=== PATIENT | female | born 1955 | race African-American/Black ===

== ENCOUNTER 2020-01-19 10:57 | Emergency (ER) | payer MEDICARE | END 2020-01-19 12:50 | disposition home or self-care (01) | LOC: ERS 10:57 | DX: R07.89 Other chest pain (principal); K21.9 Gastro-esophageal reflux disease without esophagitis; E78.5 Hyperlipidemia, unspecified; E78.00 Pure hypercholesterolemia, unspecified; I10 Essential (primary) hypertension; Z87.891 Personal history of nicotine dependence; Z79.82 Long term (current) use of aspirin; Z79.899 Other long term (current) drug therapy | CPT/HCPCS: 36415; 93005 ==

== ENCOUNTER 2023-11-05 16:23 | Observation (INO) | payer MEDICARE ==
[2023-11-05 18:30] VITALS: BMI 40.5
[2023-11-05] MEDS ORDERED: Acetaminophen 325 MG TAB PO PRN (18:36)
[2023-11-05] MEDS ORDERED: Nitroglycerin 0.4 MG TAB (25 Tab Bottle) SL PRN (18:36)
[2023-11-05] MEDS ORDERED: hydrOXYzine 25 MG TAB PO PRN (18:39)
[2023-11-05] MEDS ORDERED: hydrALAZINE 20 MG/ML VIAL SLOW IVP PRN (18:40)
[2023-11-05 19:33] LABS: Troponin I 0.014 ng/mL (< 0.028)
[2023-11-06 00:52] LABS: Bacteria/HPF 3+ HPF (None Seen); Bilirubin Negative (Negative); Blood, Urine Negative (Negative); Clarity Clear (Clear); Glucose, Urine (Dipstick) Normal (Negative); Ketone, Urine Negative (Negative); Leukocyte Negative Leu/uL (Negative); Nitrite Negative (Negative); Protein, Urine (Dipstick) Negative (Neg-Trace); RBC/HPF 0-3 HPF (0-3); Specific Gravity, Urine 1.011 (1.002-1.036); Urobilinogen Normal mg/dL (Less than 2); WBC/HPF 0-3 HPF (0-3); pH, Urine 7.5 (5.0-9.0)
[2023-11-06 06:17] LABS: Cardiac Risk 4.6 (Less than 4.5)
[2023-11-06] MEDS: Atorvastatin Calcium 20 MG TAB PO SCH (08:05)
[2023-11-06] MEDS: Hydrochlorothiazide 25 MG TAB PO SCH (08:05)
[2023-11-06] MEDS: Aspirin Chewable 81 MG TAB PO SCH (08:05)
[2023-11-06] MEDS: Lisinopril 20 MG TAB PO SCH (08:05)
[2023-11-06] MEDS ORDERED: Regadenoson 0.4 MG/5 ML SYRINGE ONE (12:00)
[2023-11-07 05:35] LABS: #Eosinphils 0.1 thou/uL (0.0-0.7); #Monocytes 0.5 thou/uL (0.11-0.59); #Neutrophils 4.9 thou/uL (1.40-6.50); %Basophils 0.3 % (0.0-1.0); %Eosinophils 1.5 % (0.0-10.0); %Monocytes 5.9 % (0.0-10.0); %Neutrophils 56.8 % (42.0-75.0); Hematocrit 31.7 % (36.0-47.0); Hemoglobin 10.7 g/dL (12.0-16.0); Mean Corpuscular HGB CONC 33.8 g/dL (32.0-36.0); Mean Corpuscular Hemoglobin 27.6 pg (27.0-31.0); Mean Corpuscular Volume 81.7 fl (78.0-98.0); Mean Platelet Volume 10.2 fL (7.4-10.4); Platelet Count 336 10x3/uL (130-400); RBC Distribution Width 15.1 % (11.5-14.5); Red Blood Cell (RBC) Count 3.88 mill/uL (4.20-5.40); White Blood Cell (WBC) Count 8.6 10x3/uL (4.8-10.8)
[2023-11-07 05:55] LABS: Anion Gap 13 mmol/L (10-20); BUN (Urea Nitrogen) 12 mg/dL (9.8-20.1); Calc. Creatinine Clearance 89 mL/min (70-130); Calcium 9.2 mg/dL (7.8-10.44); Carbon Dioxide 27 mmol/L (23-31); Chloride 106 mmol/L (98-107); Estimated GFR 61; Glucose 96 mg/dL (80-115); Potassium 3.5 mmol/L (3.5-5.1); Sodium 142 mmol/L (136-145)
[2023-11-07] MEDS: Aspirin Chewable 81 MG TAB PO SCH (08:27)
[2023-11-07] MEDS: Hydrochlorothiazide 25 MG TAB PO SCH (08:27)
[2023-11-07] MEDS: Lisinopril 20 MG TAB PO SCH (08:27)
[2023-11-07] MEDS: Atorvastatin Calcium 20 MG TAB PO SCH (08:27)
[2023-11-07 12:01] VITALS: BP 147/54; TEMP 97.9
[2023-11-08] MEDS ORDERED: FLU VACC QS2023(65UP)/MF59C/PF 60 MCG/0.5 ML SYRINGE IM ONE (09:00)
== END 2023-11-07 13:22 | disposition home or self-care (01) ==
LOC: 2SW 17:27
PROVIDERS: ADMIT Internal Medicine; ATTEND Internal Medicine
PROC: B246ZZZ Ultrasonography of Right and Left Heart (ICD-10-PCS; principal; 2023-11-05)
DX: I16.0 Hypertensive urgency (principal); F41.9 Anxiety disorder, unspecified; K21.9 Gastro-esophageal reflux disease without esophagitis; E78.5 Hyperlipidemia, unspecified; D64.9 Anemia, unspecified; E66.01 Morbid (severe) obesity due to excess calories; R00.2 Palpitations; Z68.41 Body mass index [BMI] 40.0-44.9, adult; Z79.82 Long term (current) use of aspirin; Z79.899 Other long term (current) drug therapy
CPT/HCPCS: 78452; 80048; 80061; 81001; 82962; 84484; 85025; 93017; 93306; 94760 ×3; A9502; G0378 ×3; J2785; 36415; 36416